=== PATIENT | female | born 1985 ===

== ENCOUNTER 2022-03-22 16:52 | Outpatient (CLI) | payer SELFPAY ==
[2022-03-22] MEDS ORDERED: LACTATED RINGERS 500 ML IV ONE (17:44)
[2022-03-22 18:42] VITALS: BP 115/72
--- NOTE | 2022-03-26 08:32 | Ultrasound Report ---
ULTRASOUND OBSTETRIC LIMITED ULTRASOUND BIOPHYSICAL PROFILE INDICATION / CLINICAL INFORMATION: OBESITY, AMA and ELEVATED B/Ps.. - Clinical Gestational Age (GA) in weeks, days: 36, 3 TECHNIQUE: Transabdominal. COMPARISON: None available. FINDINGS: BREATHING MOVEMENT = 2 GROSS BODY MOVEMENT = 2 TONE = 2 QUALITATIVE AMNIOTIC FLUID VOLUME = 2 TOTAL BIOPHYSICAL SCORE = 8/8 HEART RATE (beats per minute): 155 AMNIOTIC FLUID INDEX (cm) = 9.8 cm (normal = 7-24 cm) PRESENTATION: Cephalic. ADDITIONAL FINDINGS: Cervical length is 2.4 cm. IMPRESSION: 1. Biophysical Score = 8/8 Signer Name: Cheryl Bauer MD Signed: 03/22/2022 7:13 PM Workstation Name: [id number]
== END 2022-03-22 19:00 | disposition home or self-care (01) ==
LOC: TRG 16:52 → APU 16:53 → TRG 19:00
PROVIDERS: ATTEND Obstetrics & Gynecology Gynecology
DX: O26.893 Other specified pregnancy related conditions, third trimester (principal); L29.9 Pruritus, unspecified; Z3A.35 35 weeks gestation of pregnancy
CPT/HCPCS: 59025; 76815; 76819

== ENCOUNTER 2022-04-03 15:28 | Inpatient (IN) | payer SELFPAY ==
--- NOTE | 2022-04-03 17:28 | History and Physical Report ---
History of Present Illness Date of examination: 04/03/22 Date of admission: 04/03/2022 Chief complaint: Here for induction of labor History of present illness: 36 y/o at 38 weeks with care at [facility] presents to Labor an delivery for induction of labor for cholestasis. Past History Past Medical History: no pertinent history Past Surgical History: no surgical history Family/Genetic History: none Social history: no significant social history - Obstetrical History Expected Date of Delivery: 04/17/22 Actual Gestation: 38 Week(s) 0 Day(s) : 1 Para: 0 Number of Living Children: 0 Medications and Allergies Allergies Allergy/AdvReac Type Severity Reaction Status Date / Time No Known Allergies Allergy Verified 04/03/22 17:07 Home Medications Medication Instructions Recorded Confirmed Last Taken Type No Known Home Medications [No 04/03/22 04/03/22 Unknown History Reported Home Medications] Review of Systems All systems: negative - Vital Signs Vital signs: Vital Signs Pulse BP 94 H 127/80 04/03/22 16:07 04/03/22 16:07 Temp Pulse Resp BP Pulse Ox 97.5 F L 94 H 18 127/80 04/03/22 17:05 04/03/22 16:07 04/03/22 17:05 04/03/22 16:07 - Physical Exam Breasts: Positive: deferred Cardiovascular: Regular rate Lungs: Positive: Clear to auscultation Abdomen: Positive: soft Uterus: Positive: enlarged Anus/Rectum: Positive: normal perianal skin Deep Tendon Reflex Grade: Normal +2 - Obstetrical FHR: category 1 Uterine Contraction Monitor Mode: Palpation Cervical Dilatation: 0 Cervical Effacement Percentage: 50 station: -3 Uterine Contraction Pattern: Irregular Uterine Contraction Intensity: Mild Results All other labs normal. Assessment and Plan A:Induction of labor at 38 weeks or cholestasis P: Cytotec ripening
[2022-04-03] MEDS ORDERED: miSOPROStol 25 MCG TAB VG SCH (17:29)
[2022-04-03] MEDS ORDERED: MINERAL OIL 30 ML ORAL LIQD PO PRN (17:29)
[2022-04-03] MEDS ORDERED: TERBUTALINE 1 MG/1 ML INJ SUB-Q PRN (17:29)
[2022-04-03] MEDS ORDERED: OXYTOCIN 10 UNIT/1 ML INJ IM PRN (17:29)
[2022-04-03] MEDS ORDERED: METHYLERGONOVINE MALEATE 0.2 MG/ML VIAL IM PRN (17:29)
[2022-04-03] MEDS ORDERED: ACETAMINOPHEN 325 MG TAB PO PRN (17:29)
[2022-04-03] MEDS ORDERED: LOPERAMIDE 2 MG CAP PO PRN (17:29)
[2022-04-03] MEDS ORDERED: miSOPROStol 200 MCG TAB PR PRN (17:29)
[2022-04-03] MEDS ORDERED: ePHEDrine SULFATE 50 MG/1 ML INJ IV PRN (17:29)
[2022-04-03] MEDS ORDERED: BUTORPHANOL 2 MG/1 ML INJ IV PRN ×3 (17:29→17:54)
[2022-04-03] MEDS ORDERED: CARBOPROST TROMETHAMINE 250 MCG/1 ML INJ IM PRN (17:29)
[2022-04-03] MEDS ORDERED: LIDOCAINE (2%) 20 MG/1 ML VIAL 20 ML MDV INFILTRATI ONE (17:29)
[2022-04-03] MEDS ORDERED: LACTATED RINGERS 1,000 ML IV SCH (17:30)
[2022-04-03] MEDS ORDERED: OXYTOCIN DRIP 30 UNITS/500 ML BAG IV SCH ×2 (18:00)
[2022-04-03 18:42] LABS: Hematocrit 39.1 % (30.3-42.9); Hemoglobin 13.4 gm/dl (10.1-14.3); Mean Corpuscular HGB Conc 34 % (30-34); Mean Corpuscular Volume 88 fl (79-97); Platelet Count 138 K/mm3 (140-440); Red Blood Count 4.46 M/mm3 (3.65-5.03); Red Cell Distribution Width 15.1 % (13.2-15.2)
[2022-04-03] MEDS: miSOPROStol 25 MCG TAB PO SCH ×2 (18:55→23:12)
[2022-04-03 20:07] LABS: Alanine Aminotransferase 104 units/L (7-56); Albumin 3.1 g/dL (3.9-5); BUN/Creatinine Ratio 14; Blood Urea Nitrogen 13 mg/dL (7-17); Calcium 8.8 mg/dL (8.4-10.2); Hemolysis Index 31
--- NOTE | 2022-04-03 20:56 | Ultrasound Report ---
ULTRASOUND OBSTETRIC INDICATION / CLINICAL INFORMATION: Intrahepatic cholestasis of . Clinical Gestational Age (GA) in weeks, days: 38, 1 TECHNIQUE: Transabdominal. COMPARISON: 03/22/2022 FINDINGS: Single intrauterine . Biparietal Diameter = 8.3 cm = 33, 1 weeks, days Head Circumference = 31.4 cm = 35, 2 weeks, days Abdominal Circumference = 35.0 cm = 38, 6 weeks, days Femur Length = 7.0 cm = 36, 0 weeks, days Average Ultrasound Age (AUA) = 35, 6 weeks, days Heart Rate: 152 beats per minute. Estimated Weight in grams (if calculated): 3118 Estimated Weight Growth Percentile (if calculated): 36 Position: cephalic. Amniotic Fluid Volume: normal Amniotic Fluid Index (TAQUERIA) in cm (if calculated): 11.6. BREATHING MOVEMENT = 2 GROSS BODY MOVEMENT = 2 TONE = 2 QUALITATIVE AMNIOTIC FLUID VOLUME = 2 TOTAL BIOPHYSICAL SCORE = 8/8 IMPRESSION: 1. Single, living intrauterine with estimated sonographic age of 35, 6 weeks, days. 2. No significant sonographic abnormality. Signer Name: Nicholas Joy DO Signed: 04/03/2022 8:52 PM Workstation Name: [id number]
[2022-04-03] MEDS: URSODIOL NICU 50 MG/ML ORAL LIQD DILUTION PO SCH (21:17)
[2022-04-03] MEDS ORDERED: INSULIN GLARGINE 100 UNITS/ML SUB-Q STA (23:08)
--- NOTE | 2022-04-04 01:27 | Event Note ---
Date: 04/04/22 CHIEF COMPLAINT: HD #2, Induction of labor secondary to intrahepatic cholestasis of HISTORY OF PRESENT ILLNESS: 36-year-old primagravida at 38-1/7 weeks gestation is admitted to labor and delivery for preinduction cervical ripening secondary to intrahepatic cholestasis of . There is no leaking of fluid. Contractions are present as the patient is on oral Cytotec. There is good movement. There is spotting from placement of the intracervical Boyd balloon. The patient reports mild itching of the palms of the hands and soles of the feet. OBJECTIVE: EFM= category 1 TOCO= q 3-5 minutes SVE= ftp/80%/-3. Soft. Mid. 22 Croatian Boyd balloon was inserted transcervically and inflated with 70 mL normal saline. Thereafter, that catheter was placed to traction with 1 L bag of lactated Ringer's. LABS: Bile acids= elevated HgBA1c= 6.6 RADIOLOGY: OB Ultrasound Limited= SLIUP. Vertex. EFW= 3118 g (36th %-ile). TAQUERIA= 11.6 cm. IMPRESSION: 1.) 38 weeks 2.) Intrahepatic cholestasis of 3.) Elevated hemoglobin A1c, rule out gestational diabetes 4.) Encounter for induction of labor PLAN: 1.) care is up[facility]to-date at [facility] . 1 hour glucose tolerance test= 134. 2.) Start ursodiol 300 mg p.o. 3 times daily. 3.) Start Lantus 24 units subcu x1. 4.) Continue Cytotec 25 mcg p.o. every 4 hours. 5.) A 22 Croatian Boyd balloon was inserted transcervically. 6.) Attempt rupture of membranes after Boyd balloon falls out.
[2022-04-04] MEDS: miSOPROStol 25 MCG TAB PO SCH (03:07)
[2022-04-04] MEDS: URSODIOL NICU 50 MG/ML ORAL LIQD DILUTION PO SCH ×2 (05:26→15:06)
[2022-04-04] MEDS ORDERED: DINOPROSTONE 10 MG VAG SUPP VG NR (07:00)
[2022-04-04] MEDS ORDERED: SODIUM CHLORIDE 0.9% 1000 ML 1,000 ML IV SCH (07:15)
[2022-04-04] MEDS ORDERED: INSULIN LISPRO 100 UNIT/ML SUB-Q SCH (07:30)
[2022-04-04] MEDS ORDERED: LACTATED RINGERS 1,000 ML ONE ×2 (07:33→13:03)
--- NOTE | 2022-04-04 07:57 | Event Note ---
Date: 04/04/22 CHIEF COMPLAINT: HD #2, Induction of labor secondary to intrahepatic cholestasis of HISTORY OF PRESENT ILLNESS: 36-year-old primagravida at 38-1/7 weeks gestation is admitted to labor and delivery for preinduction cervical ripening secondary to intrahepatic cholestasis of . There is no leaking of fluid. Contractions are present. There is good movement. There is spotting. The patient reports mild itching of the palms of the hands and soles of the feet. The patient received a dose of Cytotec 25 mcg vaginally, followed by 3 doses of Cytotec 25 mcg orally. Transcervical Boyd balloon was also placed to traction, and this fell out within the past hour. However, cervix a change to only 1 cm dilated. OBJECTIVE: FBS= 138 EFM= category 1 TOCO= q 5 minutes SVE= 1/80%/-3. Soft. Mid. Another 20 Italian Boyd balloon was inserted transcervically and inflated with 70 mL normal saline. Thereafter, that catheter was placed to traction with 1 L bag of lactated Ringer's. Thereafter, Cervidil was placed in the posterior fornix. LABS: Bile acids= elevated HgBA1c= 6.6 RADIOLOGY: OB Ultrasound Limited= SLIUP. Vertex. EFW= 3118 g (36th %-ile). TAQUERIA= 11.6 cm. IMPRESSION: 1.) 38 weeks 2.) Intrahepatic cholestasis of 3.) Gestational diabetes mellitus A2 4.) Encounter for induction of labor PLAN: 1.) care is up-to-date at [facility] . 1 hour glucose tolerance test= 134. 2.) Start ursodiol 300 mg p.o. 3 times daily. 3.) Insulin regimen ordered is Humalog 8 units SQ before meals and Lantus 24 units SQ nightly. 4.) Cervidil was placed in the posterior fornix. 5.) A 20 Italian Boyd balloon was inserted transcervically and placed to traction. 6.) Attempt rupture of membranes after this Boyd balloon falls out.
[2022-04-04] MEDS ORDERED: fentaNYL 100 MCG/2 ML INJ IV NR (10:30)
[2022-04-04] MEDS ORDERED: LACTATED RINGERS 2,000 ML ONE (11:29)
--- NOTE | 2022-04-04 11:45 | Progress Note ---
Assessment and Plan A: @38.2wks IOL cholestatis of EFM cat 1 tracing infrequent contractions GDM type [address] with traction, and cervidil P: Continue IOL Urosodiol tid Lantus 24u qpm, 8u with meal AROM once balloon and cervidil comes out pain management Subjective - Subjective Date of service: 04/04/22 (0900) Principal diagnosis: Cholestasis of Patient reports: movement normal, contractions Objective - Vital Signs Vital Signs: Vital Signs - 12hr 04/03/22 04/03/22 04/03/22 23:40 23:45 23:50 Temperature Pulse Rate 86 98 H 65 Respiratory Rate Blood Pressure O2 Sat by Pulse 97 97 97 Oximetry 04/03/22 04/04/22 04/04/22 23:55 00:02 00:07 Temperature Pulse Rate 63 84 80 Respiratory Rate Blood Pressure O2 Sat by Pulse 97 98 98 Oximetry 04/04/22 04/04/22 04/04/22 00:12 00:17 00:22 Temperature Pulse Rate 73 90 64 Respiratory Rate Blood Pressure O2 Sat by Pulse 97 97 99 Oximetry 04/04/22 04/04/22 04/04/22 00:27 00:32 00:37 Temperature Pulse Rate 67 65 67 Respiratory Rate Blood Pressure O2 Sat by Pulse 99 99 97 Oximetry 04/04/22 04/04/22 04/04/22 00:42 00:47 00:52 Temperature Pulse Rate 67 81 67 Respiratory Rate Blood Pressure O2 Sat by Pulse 98 97 97 Oximetry 04/04/22 04/04/22 04/04/22 00:57 01:02 01:07 Temperature Pulse Rate 72 64 72 Respiratory Rate Blood Pressure O2 Sat by Pulse 97 97 97 Oximetry 04/04/22 04/04/22 04/04/22 01:12 01:17 01:22 Temperature Pulse Rate 56 L 64 74 Respiratory Rate Blood Pressure O2 Sat by Pulse 96 97 97 Oximetry 04/04/22 04/04/22 04/04/22 01:27 01:32 01:37 Temperature Pulse Rate 69 63 79 Respiratory Rate Blood Pressure O2 Sat by Pulse 97 98 96 Oximetry 04/04/22 04/04/22 04/04/22 01:42 01:47 01:52 Temperature Pulse Rate 75 68 90 Respiratory Rate Blood Pressure O2 Sat by Pulse 97 96 96 Oximetry 04/04/22 04/04/22 04/04/22 01:57 02:02 02:07 Temperature Pulse Rate 79 73 68 Respiratory Rate Blood Pressure O2 Sat by Pulse 95 97 97 Oximetry 04/04/22 04/04/22 04/04/22 02:12 02:24 02:29 Temperature Pulse Rate 62 89 73 Respiratory Rate Blood Pressure O2 Sat by Pulse 97 100 97 Oximetry 04/04/22 04/04/22 04/04/22 02:34 02:39 02:44 Temperature Pulse Rate 76 65 93 H Respiratory Rate Blood Pressure O2 Sat by Pulse 97 96 96 Oximetry 04/04/22 04/04/22 04/04/22 02:49 02:54 02:59 Temperature Pulse Rate 71 63 65 Respiratory Rate Blood Pressure O2 Sat by Pulse 96 96 97 Oximetry 04/04/22 04/04/22 04/04/22 03:04 03:09 03:14 Temperature Pulse Rate 94 H 82 70 Respiratory Rate Blood Pressure 112/66 O2 Sat by Pulse 97 97 95 Oximetry 04/04/22 04/04/22 04/04/22 03:19 03:24 03:29 Temperature Pulse Rate 71 68 63 Respiratory Rate Blood Pressure O2 Sat by Pulse 97 97 96 Oximetry 04/04/22 04/04/22 04/04/22 03:34 03:39 03:44 Temperature Pulse Rate 70 62 61 Respiratory Rate Blood Pressure O2 Sat by Pulse 97 97 98 Oximetry 04/04/22 04/04/22 04/04/22 03:49 03:54 03:59 Temperature Pulse Rate 70 68 109 H Respiratory Rate Blood Pressure O2 Sat by Pulse 97 97 95 Oximetry 04/04/22 04/04/22 04/04/22 04:01 04:04 04:09 Temperature Pulse Rate 71 89 109 H Respiratory Rate Blood Pressure O2 Sat by Pulse 94 94 96 Oximetry 04/04/22 04/04/22 04/04/22 04:14 04:19 04:24 Temperature Pulse Rate 79 66 79 Respiratory Rate Blood Pressure O2 Sat by Pulse 96 96 95 Oximetry 04/04/22 04/04/22 04/04/22 04:29 04:34 04:39 Temperature Pulse Rate 103 H 89 62 Respiratory Rate Blood Pressure O2 Sat by Pulse 95 95 98 Oximetry 09/15/22 09/15/22 09/15/22 04:44 04:49 04:54 Temperature Pulse Rate 76 77 92 H Respiratory Rate Blood Pressure O2 Sat by Pulse 96 96 96 Oximetry 04/04/22 04/04/22 04/04/22 04:59 05:04 05:09 Temperature Pulse Rate 66 68 65 Respiratory Rate Blood Pressure O2 Sat by Pulse 96 96 96 Oximetry 04/04/22 04/04/22 04/04/22 05:14 05:19 05:24 Temperature Pulse Rate 71 71 90 Respiratory Rate Blood Pressure O2 Sat by Pulse 98 96 96 Oximetry 04/04/22 04/04/22 04/04/22 05:29 05:32 05:34 Temperature Pulse Rate 73 72 65 Respiratory Rate Blood Pressure O2 Sat by Pulse 96 93 96 Oximetry 04/04/22 04/04/22 04/04/22 05:39 05:44 05:45 Temperature Pulse Rate 72 83 78 Respiratory Rate Blood Pressure O2 Sat by Pulse 97 94 94 Oximetry 04/04/22 04/04/22 04/04/22 05:49 05:50 05:54 Temperature Pulse Rate 72 69 82 Respiratory Rate Blood Pressure O2 Sat by Pulse 95 94 96 Oximetry 04/04/22 04/04/22 04/04/22 05:55 05:59 06:04 Temperature Pulse Rate 79 94 H 69 Respiratory Rate Blood Pressure O2 Sat by Pulse 94 96 98 Oximetry 04/04/22 04/04/22 04/04/22 06:05 06:09 06:13 Temperature Pulse Rate 64 110 H 90 Respiratory Rate Blood Pressure O2 Sat by Pulse 94 97 94 Oximetry 04/04/22 04/04/22 04/04/22 06:14 06:19 06:24 Temperature Pulse Rate 76 74 61 Respiratory Rate Blood Pressure O2 Sat by Pulse 95 95 96 Oximetry 04/04/22 04/04/22 04/04/22 06:29 06:34 06:39 Temperature Pulse Rate 69 71 70 Respiratory Rate Blood Pressure O2 Sat by Pulse 96 97 96 Oximetry 04/04/22 04/04/22 04/04/22 06:44 06:49 06:54 Temperature Pulse Rate 73 70 85 Respiratory Rate Blood Pressure O2 Sat by Pulse 96 96 99 Oximetry 04/04/22 04/04/22 04/04/22 06:59 07:04 07:07 Temperature Pulse Rate 70 69 72 Respiratory Rate Blood Pressure O2 Sat by Pulse 96 96 94 Oximetry 04/04/22 04/04/22 04/04/22 07:09 07:17 07:22 Temperature Pulse Rate 72 85 81 Respiratory Rate Blood Pressure O2 Sat by Pulse 96 97 96 Oximetry 04/04/22 04/04/22 04/04/22 07:27 07:32 07:37 Temperature Pulse Rate 68 75 64 Respiratory Rate Blood Pressure O2 Sat by Pulse 97 96 96 Oximetry 04/04/22 04/04/22 04/04/22 07:42 07:47 07:52 Temperature Pulse Rate 73 84 65 Respiratory Rate Blood Pressure O2 Sat by Pulse 96 96 96 Oximetry 04/04/22 04/04/22 04/04/22 07:57 08:02 08:07 Temperature Pulse Rate 68 71 77 Respiratory Rate Blood Pressure O2 Sat by Pulse 96 96 96 Oximetry 04/04/22 04/04/22 04/04/22 08:12 08:17 08:22 Temperature Pulse Rate 65 70 61 Respiratory Rate Blood Pressure O2 Sat by Pulse 96 96 96 Oximetry 04/04/22 04/04/22 04/04/22 08:27 08:32 08:37 Temperature Pulse Rate 79 72 75 Respiratory Rate Blood Pressure O2 Sat by Pulse 96 96 98 Oximetry 04/04/22 04/04/22 04/04/22 08:42 08:47 08:52 Temperature Pulse Rate 66 64 64 Respiratory Rate Blood Pressure O2 Sat by Pulse 96 96 98 Oximetry 04/04/22 04/04/22 04/04/22 08:57 09:02 09:07 Temperature Pulse Rate 66 60 64 Respiratory Rate Blood Pressure O2 Sat by Pulse 97 97 97 Oximetry 04/04/22 04/04/22 04/04/22 09:12 09:17 09:22 Temperature Pulse Rate 64 71 67 Respiratory Rate Blood Pressure O2 Sat by Pulse 96 98 97 Oximetry 04/04/22 04/04/22 04/04/22 09:27 09:32 09:37 Temperature Pulse Rate 64 69 64 Respiratory Rate Blood Pressure O2 Sat by Pulse 99 98 97 Oximetry 04/04/22 04/04/22 04/04/22 09:42 09:47 09:50 Temperature Pulse Rate 63 65 63 Respiratory Rate Blood Pressure 137/77 O2 Sat by Pulse 97 97 Oximetry 04/04/22 04/04/22 04/04/22 09:52 09:57 10:02 Temperature Pulse Rate 62 67 62 Respiratory Rate Blood Pressure O2 Sat by Pulse 98 98 97 Oximetry 04/04/22 04/04/22 04/04/22 10:07 10:16 10:37 Temperature 98.1 F Pulse Rate 71 72 Respiratory 18 Rate Blood Pressure O2 Sat by Pulse 97 96 Oximetry 04/04/22 04/04/22 04/04/22 10:42 10:47 10:52 Temperature Pulse Rate 74 72 74 Respiratory Rate Blood Pressure O2 Sat by Pulse 96 96 96 Oximetry 04/04/22 04/04/22 04/04/22 10:57 11:14 11:19 Temperature Pulse Rate 79 64 74 Respiratory Rate Blood Pressure O2 Sat by Pulse 96 98 97 Oximetry 04/04/22 04/04/22 04/04/22 11:21 11:24 11:27 Temperature Pulse Rate 71 70 111 H Respiratory Rate Blood Pressure O2 Sat by Pulse 94 95 94 Oximetry 04/04/22 04/04/22 11:29 11:34 Temperature Pulse Rate 65 85 Respiratory Rate Blood Pressure O2 Sat by Pulse 97 96 Oximetry - Exam Breasts: deferred Cardiovascular: Regular rate Lungs: Clear to auscultation, Normal air movement Abdomen: Present: normal appearance Uterus: Present: fundal height above umbilicus FHR: category 1 Uterine Contraction Monitor Mode: External Uterine Contraction Pattern: Irregular Extremities: normal Deep Tendon Reflex Grade: Normal +2 - Labs Labs: Abnormal Labs 04/03/22 04/03/22 04/03/22 18:10 18:10 18:10 Plt Count 138 L Sodium 135 L Carbon Dioxide 15 L Hemoglobin A1c 6.6 H AST 58 H ALT 104 H Alkaline Phosphatase 395 H Albumin 3.1 L Laboratory Results - last 24 hr 04/03/22 04/03/22 04/03/22 18:10 18:10 18:10 WBC 5.6 RBC 4.46 Hgb 13.4 Hct 39.1 MCV 88 MCH 30 MCHC 34 RDW 15.1 Plt Count 138 L Sodium 135 L Potassium 4.1 Chloride 99.7 Carbon Dioxide 15 L Anion Gap 24 BUN 13 Creatinine 0.9 Estimated GFR > 60 BUN/Creatinine Ratio 14 Glucose 78 Hemoglobin A1c Calcium 8.8 Total Bilirubin 0.40 AST 58 H ALT 104 H Alkaline Phosphatase 395 H Total Protein 7.2 Albumin 3.1 L Albumin/Globulin Ratio 0.8 SARS-CoV-2 (PCR) Blood Type O POSITIVE Antibody Screen Negative 04/03/22 04/04/22 18:10 09:49 WBC RBC Hgb Hct MCV MCH MCHC RDW Plt Count Sodium Potassium Chloride Carbon Dioxide Anion Gap BUN Creatinine Estimated GFR BUN/Creatinine Ratio Glucose Hemoglobin A1c 6.6 H Calcium Total Bilirubin AST ALT Alkaline Phosphatase Total Protein Albumin Albumin/Globulin Ratio SARS-CoV-2 (PCR) Negative Blood Type Antibody Screen
[2022-04-04] MEDS ORDERED: fentaNYL-BUPIV 2 MCG/ML-0.125% 200 MCG/100 ML BAG EPIDURAL ONE (12:02)
[2022-04-04] MEDS ORDERED: fentaNYL-BUPIV 2 MCG/ML-0.125% 200 MCG/100 ML BAG EPIDURAL SCH (12:04)
[2022-04-04] MEDS ORDERED: NALOXONE 0.4 MG/1 ML INJ IV PRN (12:04)
[2022-04-04] MEDS ORDERED: ePHEDrine SULFATE 50 MG/1 ML INJ IV PRN (12:04)
--- NOTE | 2022-04-04 12:28 | Anesthesia Consultation ---
Anesthesia Consult and Med Hx Date of service: 04/04/22 - Airway Anesthetic Teeth Evaluation: Good ROM Head & Neck: Adequate Mental/Hyoid Distance: Adequate Mallampati Class: Class II Intubation Access Assessment: Probably Good - Pulmonary Exam CTA: Yes - Cardiac Exam Cardiac Exam: RRR - Pre-Operative Health Status ASA Pre-Surgery Classification: ASA2 Proposed Anesthetic Plan: Epidural - Pulmonary Hx Smoking: No Hx Asthma: No Hx Respiratory Symptoms: No SOB: No COPD: No Home Oxygen Therapy: No Hx Pneumonia: No Hx Sleep Apnea: No - Cardiovascular System Hx Hypertension: No Hx Coronary Artery Disease: No Hx Heart Attack/AMI: No Hx Angina: No Hx Percutaneous Transluminal Coronary Angioplasty (PTCA): No Hx Cardia Arrhythmia: No Hx Pacemaker: No Hx Internal Defibrillator: No Hx Valvular Heart Disease: No Hx Heart Murmur: No Hx Peripheral Vascular Disease: No - Central Nervous System Hx Neuromuscular Disorder: No Hx Seizures: No CVA: No Hx Back Pain: No Hx Psychiatric Problems: No - Gastrointestinal Hx Ulcer: No Hx Gastroesophageal Reflux Disease: No - Endocrine Hx Renal Disease: No Hx End Stage Renal Disease: No Hx Cirrhosis: No Hx Liver Disease: No Hx Insulin Dependent Diabetes: No Hx Non-Insulin Dependent Diabetes: Yes Hx Thyroid Disease: No Hx Hypothyroidism: No Hx Hyperthyroidism: No - Hematic Hx Anemia: No Hx Sickle Cell Disease: No - Other Systems Hx Alcohol Use: No Hx Substance Use: No Hx Cancer: No Hx Obesity: No
--- NOTE | 2022-04-04 12:28 | Anesthesia Day of Surgery ---
Anesthesia Day of Surgery - Day of Surgery Patient Examined: Yes Patient H&P Reviewed: Yes Patient is NPO: Yes Beta Blockers: No Cardiac Clearance: No Pulmonary Clearance: No Jonel's Test: N/A
--- NOTE | 2022-04-04 12:29 | Progress Note ---
Labor Epidural - Labor Epidural Start Time: 12:10 Stop Time: 12:15 Performed by:: DAT HAMMOND Procedure: Epidural Requested for Labor Pain. H&P and PT Chart reviewed and consent obtained. Time out performed and the procedure was explained, all questions answered. Patient was placed in a sitting position with monitors applied. The PTs back was prepped and draped in usual sterile fashion. The Skin was localized with 3 mL of 1% lidocaine at L3-L4. A 17-gauge Touhy epidural needle was advanced to TORRES with saline at 7 cm and no blood/CSF was noted via epidural needle. Epidural catheter was advanced to 12 cm. There was negative aspiration for blood and CSF in the catheter and negative response to a test dose of 3 ml 1.5% lidocaine w/ Epi and a sterile dressing was applied Patient tolerated the procedure well and there were no immediate complications noted.
--- NOTE | 2022-04-04 12:43 | Event Note ---
Date: 04/04/22 (0647) Patient pain is tolerable with epidural at this time. Attempted to AROM, patient very resistant, crying due to fear. Spouse at bs consoling and explaining procedure to patient in [place]. She declines this process at this time. We will start Pitocin 4x4x30. Ve:-3
[2022-04-04] MEDS ORDERED: OXYTOCIN DRIP 30 UNITS/500 ML BAG IV SCH ×2 (14:00→19:01)
--- NOTE | 2022-04-04 16:02 | Ultrasound Report ---
LIMITED OBSTETRICAL ULTRASOUND HISTORY: Abdominal pain/right flank pain. COMPARISON: Previous day. FINDINGS: A single viable intrauterine in the cephalic position has heart tones of 13 0 bpm. The placenta is located on the right laterally at the fundus. No placental separation is identified. Incidentally noted is moderate right-sided hydronephrosis. IMPRESSION: 1. Viable intrauterine without visualized placental abnormality. 2. Right-sided hydronephrosis likely representing hydronephrosis of . Signer Name: Redd Rangel MD Signed: 04/04/2022 3:58 PM Workstation Name: [email or web address]
--- NOTE | 2022-04-04 16:16 | Progress Note ---
Labor Epidural - Labor Epidural Start Time: 15:52 Stop Time: 16:00 Performed by:: DAT HAMMOND Procedure: Pt stated that she was getting no relief from 1st epidural and requested a second. Patient was placed in a sitting position with monitors applied. The PTs back was prepped and draped in usual sterile fashion. The Skin was localized with 3 mL of 1% lidocaine at L3-L4. A 17-gauge Touhy epidural needle was advanced to TORRES with saline at 7 cm and no blood/CSF was noted via epidural needle. Epidural catheter was advanced to 12 cm. There was negative aspiration for blood and CSF in the catheter and negative response to a test dose of 3 ml 1.5% lidocaine w/ Epi and a sterile dressing was applied Patient tolerated the procedure well and there were no immediate complications noted.
--- NOTE | 2022-04-04 19:26 | Event Note ---
Date: 04/04/22 (1914) Evaluating patient, cat 1 tracing, cx 1-3min, she received a second epidural, now she is w/o pain. VE: C/+1. She does not push effectively, will decrease epidural pump and position high fowlers with legs lowered.
[2022-04-04] MEDS ORDERED: MINERAL OIL 30 ML ORAL LIQD ONE (20:03)
[2022-04-04] MEDS ORDERED: INSULIN GLARGINE 100 UNITS/ML SUB-Q SCH (22:00)
[2022-04-05] MEDS ORDERED: LANOLIN/ZINC/DIMETHICONE (LANSINOH) 7 GM TP PRN (00:15)
[2022-04-05] MEDS ORDERED: HYDROcodone/ACETAMINOPHEN 5-325 MG TAB PO PRN (00:15)
[2022-04-05] MEDS ORDERED: BENZOCAINE/MENTHOL 20/0.5% TOP SPRAY 56 GM TP PRN (00:15)
[2022-04-05] MEDS ORDERED: MAGNESIUM HYDROXIDE (MOM) ORAL LIQD UDC PO PRN (00:15)
--- NOTE | 2022-04-05 00:16 | Procedure Note ---
OB Delivery Note - Delivery Date of Delivery: 04/04/22 (2225) Surgeon: ANDREI OLIVAREZ Outside Sales Executive: ARLENE FRANCES (Did repair) Estimated blood loss: 500cc - Vaginal Delivery presentation: vertex Delivery position: OA Intrapartum events: none Delivery induction: misoprostol (cervidil, and balloon) Delivery augmentation: pitocin Delivery monitor: external FHT, external uterine Route of delivery: Delivery placenta: spontaneous Delivery cord: 3 umbilical vessels Episiotomy: none Delivery laceration: 3rd degree (vaginal), other (bilateral sulcus) Delivery repair: vicryl (2.0, 3.0), other (monocryl 4.0) Anesthesia: epidural Delivery comments: at 38.2 weeks gestation being induced for cholestasis of . she was induced with a christiansen bulb, cytotec, cervidil, she SROM clear, and was augmented with pitocin. she received an epidural, became complete and delivered a viable baby girl @2225 on 04/04/22, 6/8, 7.4 pounds. Infant placed on maternal abdomen, infant was stunned, no cord delayed clamping then, cut and clamped by CNM. Placenta sent for pathology. QBL 500ml. 3rd degree vaginal laceration, and bilateral sulcus which was repaired by Dr. Frances using 2.0,3.0 vycril and 4.0 monicryl. - Infant B at 1 minute: 6 at 5 minutes: 8 Gender: Female
[2022-04-05] MEDS ORDERED: MINERAL OIL 30 ML ORAL LIQD PO ONE (02:54)
[2022-04-05] MEDS: IBUPROFEN 800 MG TAB PO SCH ×4 (06:41→23:34)
[2022-04-05] MEDS: WITCH HAZEL/ GLYCERIN PAD TP PRN (07:05)
[2022-04-05 08:08] LABS: Hematocrit 32.4 % (30.3-42.9); Hemoglobin 10.8 gm/dl (10.1-14.3); Mean Corpuscular HGB Conc 33 % (30-34); Mean Corpuscular Volume 89 fl (79-97); Platelet Count 113 K/mm3 (140-440); Red Blood Count 3.65 M/mm3 (3.65-5.03); Red Cell Distribution Width 15.5 % (13.2-15.2)
--- NOTE | 2022-04-05 08:37 | Progress Note ---
Assessment and Plan A: S/P with 3rd degree vag tear Diabetic Leukocytosis IOL for cholestasis P: Continue routine pp orders Accuchecks AC, 2HR PP AND HS UA C&S Cefoxitin 1 gm IV X 1 Repeat CBC tomm D/C home within 24 hrs if stable - Patient Problems (1) (normal spontaneous vaginal delivery) Current Visit: Yes Status: Acute Subjective - Subjective Date of service: 04/05/22 Principal diagnosis: Cholestasis of Patient reports: appetite normal, voiding normally, pain well controlled, ambulating normally [place]: doing well, nursing well Objective - Vital Signs Latest vital signs: Vital Signs Temp Pulse Resp BP Pulse Ox Pulse Ox 04/05/22 08:09 98.1 F 66 18 122/53 99 04/05/22 07:45 99 04/05/22 06:41 18 04/05/22 05:56 98.6 F 75 18 119/62 99 04/05/22 02:22 97.4 F L 87 18 125/70 97 100 04/05/22 01:40 68 99 04/05/22 01:35 88 98 04/05/22 01:33 65 116/65 04/05/22 01:30 69 99 04/05/22 01:25 71 99 04/05/22 01:20 71 99 04/05/22 01:18 68 115/63 04/05/22 01:15 76 99 04/05/22 01:10 67 99 04/05/22 01:05 71 98 04/05/22 01:03 72 109/56 04/05/22 01:00 91 H 98 04/05/22 00:55 88 98 04/05/22 00:50 76 99 04/05/22 00:48 70 117/69 04/05/22 00:45 73 99 04/05/22 00:40 75 99 04/05/22 00:35 70 99 04/05/22 00:33 64 121/64 04/05/22 00:30 83 99 04/05/22 00:25 78 99 04/05/22 00:20 75 98 04/05/22 00:18 70 113/57 04/05/22 00:15 72 100 04/05/22 00:10 80 99 04/05/22 00:05 68 99 04/05/22 00:03 69 113/65 04/05/22 00:00 70 99 04/04/22 23:55 67 99 04/04/22 23:50 68 100 04/04/22 23:48 71 114/54 04/04/22 23:45 69 100 04/04/22 23:40 78 100 04/04/22 23:35 77 99 04/04/22 23:33 67 121/58 04/04/22 23:30 69 99 04/04/22 23:25 72 99 04/04/22 23:20 72 99 04/04/22 23:18 71 132/63 04/04/22 23:15 76 99 04/04/22 23:10 84 99 04/04/22 23:05 79 99 04/04/22 23:03 73 131/56 04/04/22 23:00 79 99 04/04/22 22:55 81 99 04/04/22 22:50 87 99 04/04/22 22:48 75 140/67 04/04/22 22:45 76 98 04/04/22 22:44 95 H 134/62 04/04/22 22:40 84 99 04/04/22 22:35 79 98 04/04/22 22:33 76 128/58 04/04/22 22:31 78 136/58 04/04/22 22:30 78 99 04/04/22 22:25 80 98 04/04/22 22:20 115 H 98 04/04/22 22:15 136 H 97 04/04/22 22:10 103 H 97 04/04/22 22:04 119 H 97 04/04/22 22:03 71 86 04/04/22 21:59 101 H 96 04/04/22 21:55 82 92 04/04/22 21:54 82 97 04/04/22 21:49 99 H 79 L 04/04/22 21:48 132 H 80 L 04/04/22 21:44 103 H 97 04/04/22 21:39 105 H 98 04/04/22 21:37 77 92 04/04/22 21:34 87 97 04/04/22 21:29 102 H 98 04/04/22 21:24 109 H 98 04/04/22 21:19 86 95 04/04/22 21:14 88 97 04/04/22 21:09 89 96 04/04/22 21:04 80 98 04/04/22 20:59 102 H 98 04/04/22 20:54 87 97 04/04/22 20:49 95 H 97 04/04/22 20:44 83 97 04/04/22 20:39 98 H 97 04/04/22 20:34 99 H 98 04/04/22 20:29 108 H 96 04/04/22 20:24 74 98 04/04/22 20:19 74 97 04/04/22 20:14 105 H 98 04/04/22 20:09 119 H 97 04/04/22 20:05 77 67 L 04/04/22 20:04 86 95 04/04/22 19:59 84 98 04/04/22 19:57 89 87 04/04/22 19:54 75 67 L 04/04/22 19:51 83 89 04/04/22 19:49 111 H 97 04/04/22 19:44 60 98 04/04/22 19:39 57 L 99 04/04/22 19:34 91 H 97 04/04/22 19:29 70 97 04/04/22 19:24 98 H 97 04/04/22 19:23 99.8 F H 18 98 04/04/22 19:19 84 97 04/04/22 19:14 89 98 04/04/22 19:09 79 97 04/04/22 19:04 58 L 97 04/04/22 19:03 54 L 119/67 04/04/22 18:59 57 L 96 04/04/22 18:54 55 L 97 04/04/22 18:49 56 L 96 04/04/22 18:48 63 123/70 04/04/22 18:44 55 L 96 04/04/22 18:39 57 L 96 04/04/22 18:34 53 L 96 04/04/22 18:33 57 L 124/65 04/04/22 18:29 60 97 04/04/22 18:24 58 L 96 04/04/22 18:19 63 97 04/04/22 18:18 57 L 108/64 04/04/22 18:14 65 95 04/04/22 18:09 68 97 04/04/22 18:05 54 L 133/61 04/04/22 18:04 59 L 97 04/04/22 17:59 55 L 97 04/04/22 17:54 60 97 04/04/22 17:49 60 97 04/04/22 17:48 90 127/77 04/04/22 17:44 72 95 04/04/22 17:39 67 95 04/04/22 17:34 59 L 96 04/04/22 17:33 71 119/65 04/04/22 17:30 99.2 F 16 04/04/22 17:29 59 L 96 04/04/22 17:24 65 95 04/04/22 17:19 64 96 04/04/22 17:18 61 119/63 04/04/22 17:14 74 96 04/04/22 17:09 56 L 96 04/04/22 17:04 60 115/64 97 04/04/22 16:59 72 96 04/04/22 16:54 63 95 04/04/22 16:53 78 94 04/04/22 16:49 73 95 04/04/22 16:48 56 L 128/71 04/04/22 16:44 56 L 95 04/04/22 16:39 65 95 04/04/22 16:34 61 94 04/04/22 16:33 62 123/66 04/04/22 16:29 61 95 04/04/22 16:28 67 94 04/04/22 16:24 69 96 04/04/22 16:19 65 96 04/04/22 16:14 66 97 04/04/22 16:10 66 127/64 04/04/22 16:09 66 96 04/04/22 16:04 79 97 04/04/22 16:03 69 139/77 04/04/22 16:00 73 143/78 04/04/22 15:59 61 98 04/04/22 15:54 68 97 04/04/22 15:49 59 L 98 04/04/22 15:48 66 141/76 04/04/22 15:44 65 99 04/04/22 15:39 66 98 04/04/22 15:34 67 98 04/04/22 15:33 63 142/74 04/04/22 15:29 61 100 04/04/22 15:24 61 99 04/04/22 15:19 63 99 04/04/22 15:14 69 99 04/04/22 15:09 66 99 04/04/22 15:04 65 98 04/04/22 14:59 68 96 04/04/22 14:54 68 177/88 98 04/04/22 14:49 63 98 04/04/22 14:44 68 98 04/04/22 14:39 73 96 04/04/22 14:35 98.1 F 16 04/04/22 14:34 66 97 04/04/22 14:29 65 97 04/04/22 14:24 58 L 98 04/04/22 14:19 66 98 04/04/22 14:14 63 98 04/04/22 14:09 65 98 04/04/22 14:04 67 95 04/04/22 13:59 57 L 97 04/04/22 13:54 68 96 04/04/22 13:49 70 97 04/04/22 13:44 72 97 04/04/22 13:39 58 L 96 04/04/22 13:34 60 98 04/04/22 13:33 61 134/71 04/04/22 13:29 61 97 04/04/22 13:24 61 97 04/04/22 13:22 72 94 04/04/22 13:19 60 96 04/04/22 13:18 64 126/62 04/04/22 13:14 64 95 04/04/22 13:09 67 97 04/04/22 13:04 67 97 04/04/22 13:03 61 97/54 04/04/22 13:00 98 04/04/22 12:59 66 97 04/04/22 12:54 64 97 04/04/22 12:49 68 97 04/04/22 12:48 62 124/62 04/04/22 12:44 59 L 97 04/04/22 12:39 78 98 04/04/22 12:34 78 138/89 98 04/04/22 12:29 72 96 04/04/22 12:27 67 137/58 04/04/22 12:24 68 96 04/04/22 12:21 71 126/58 04/04/22 12:19 92 H 99 04/04/22 12:17 81 140/69 04/04/22 12:16 81 184/77 09/15/22 12:14 67 142/56 98 09/15/22 12:10 96 H 150/76 04/04/22 12:09 84 96 04/04/22 12:04 70 93 04/04/22 12:01 71 93 04/04/22 11:59 70 96 04/04/22 11:54 83 94 04/04/22 11:52 71 94 04/04/22 11:49 78 96 04/04/22 11:47 70 147/82 04/04/22 11:44 97 H 96 04/04/22 11:39 77 97 04/04/22 11:34 85 96 04/04/22 11:29 65 97 04/04/22 11:27 111 H 94 04/04/22 11:24 70 95 04/04/22 11:21 71 94 04/04/22 11:19 74 97 04/04/22 11:14 64 98 04/04/22 10:57 79 96 04/04/22 10:52 74 96 04/04/22 10:47 72 96 04/04/22 10:42 74 96 04/04/22 10:37 72 96 04/04/22 10:16 98.1 F 18 04/04/22 10:07 71 97 04/04/22 10:02 62 97 04/04/22 09:57 67 98 04/04/22 09:52 62 98 04/04/22 09:50 63 137/77 04/04/22 09:47 65 97 04/04/22 09:42 63 97 04/04/22 09:37 64 97 04/04/22 09:32 69 98 04/04/22 09:27 64 99 04/04/22 09:22 67 97 04/04/22 09:17 71 98 04/04/22 09:12 64 96 04/04/22 09:07 64 97 04/04/22 09:02 60 97 04/04/22 08:57 66 97 04/04/22 08:52 64 98 04/04/22 08:47 64 96 04/04/22 08:42 66 96 04/04/22 08:37 75 98 Intake and Output 04/04/22 04/05/22 04/05/22 22:59 06:59 14:59 Intake Total 480 Output Total 300 400 Balance -300 80 Intake: Intake, Free Water 480 Output: Urine 300 400 Indwelling Catheter 300 Void 400 Other: Total, Output Amount 300 400 # Voids Void 1 Estimated Blood Loss 500 - Exam Breasts: Present: normal Abdomen: Present: normal appearance, soft, normal bowel sounds Vulva: both: normal Uterus: Present: normal, firm, fundal height below umbilicus Extremities: Present: normal Incision: Present: normal, intact - Labs Labs: Abnormal lab results 04/04/22 04/05/22 Range/Units 06:23 07:45 WBC 22.6 H (4.5-11.0) K/mm3 RDW 15.5 H (13.2-15.2) % Plt Count 113 L (140-440) K/mm3 POC Glucose 128 H (70-105) mg/dL
[2022-04-05] MEDS ORDERED: ceFAZolin/NS 1 GM/50 ML 1 GM/50 ML BAG IV SCH (10:00)
[2022-04-05] MEDS ORDERED: metroNIDAZOLE/NS 500 MG/100 ML 500 MG/100 ML BAG IV ONE (10:00)
[2022-04-05] MEDS: DOCUSATE SODIUM 100 MG CAP PO SCH ×2 (10:38→21:52)
[2022-04-05] MEDS: ACETAMINOPHEN 325 MG TAB PO PRN ×2 (10:42→16:56)
[2022-04-05 11:06] LABS: Bacteria,Urine 2+ /HPF (Negative); Mucus,Urine FEW /HPF
[2022-04-05 11:08] LABS: RBC,Urine > 182.0 /HPF (0.0-6.0)
[2022-04-05 11:09] LABS: WBC,Urine > 182.0 /HPF (0.0-6.0)
[2022-04-05 11:59] LABS: Color,Urine Brown (Yellow)
--- NOTE | 2022-04-05 17:46 | Post Anesthesia Evaluation ---
- Post Anesthesia Evaluation Patient Participated: Yes Airway Patent: Yes Stable Respiratory Function: Yes Nausea/Vomiting: No Temp > 96.8F: Yes Pain Manageable: Yes Adequeate Hydration: Yes Anesthesia Complications: No Block Receding Appropriately: Yes Patient on Ventilator: No
[2022-04-06] MEDS: IBUPROFEN 800 MG TAB PO SCH ×3 (05:57→17:17)
[2022-04-06] MEDS: DOCUSATE SODIUM 100 MG CAP PO SCH ×2 (10:00→22:44)
[2022-04-06 10:20] LABS: Basophils % (Auto) 0.1 % (0.0-1.8); Eosinophils # (Auto) 0.1 K/mm3 (0.0-0.4); Eosinophils % (Auto) 0.6 % (0.0-4.3); Hematocrit 32.6 % (30.3-42.9); Hemoglobin 10.9 gm/dl (10.1-14.3); Lymphocytes # (Auto) 1.2 K/mm3 (1.2-5.4); Lymphocytes % (Auto) 7.7 % (13.4-35.0); Mean Corpuscular HGB Conc 33 % (30-34); Mean Corpuscular Volume 89 fl (79-97); Monocytes # (Auto) 0.5 K/mm3 (0.0-0.8); Monocytes % (Auto) 3.5 % (0.0-7.3); Platelet Count 119 K/mm3 (140-440); Red Blood Count 3.69 M/mm3 (3.65-5.03); Red Cell Distribution Width 15.4 % (13.2-15.2)
--- NOTE | 2022-04-06 10:25 | Progress Note ---
Assessment and Plan O: PLTS 113 and WBC 22 yesterday, will repeat today A: PPD # 2 - Thrombocytopenia P: Repeat CBC Large WBC in urine - Rocephin 1 gm IM x one dose Plan discharge home today Subjective - Subjective Date of service: 04/06/22 Principal diagnosis: PPD # 2 Interval history: Feeling OK Patient reports: appetite normal [place]: doing well Objective - Vital Signs Latest vital signs: Vital Signs Temp Pulse Resp BP BP Pulse Ox Pulse Ox 04/06/22 08:15 98 04/06/22 07:53 97.7 F 75 20 112/64 97 04/06/22 05:56 98 04/06/22 03:50 98 04/06/22 01:30 98 04/06/22 00:00 98.6 F 72 20 100/56 100 04/05/22 23:34 98 04/05/22 21:51 98 04/05/22 20:10 98 04/05/22 15:52 98.0 F 83 18 111/65 95 04/05/22 11:53 98.7 F 84 18 110/54 98 Intake and Output 04/05/22 04/06/22 04/06/22 22:59 06:59 14:59 Intake Total 240 Balance 240 Intake: Oral 240 Other: Total, Intake Amount 240 # Voids Void 1 1 1 - Exam Breasts: Present: deferred, mass Lungs: Present: Clear to auscultation Abdomen: Present: soft Vulva: both: normal Uterus: Present: fundal height below umbilicus Deep Tendon Reflex Grade: Normal +2 - Labs Labs: Abnormal lab results 04/05/22 04/05/22 04/06/22 Range/Units 10:35 16:51 09:26 WBC 15.4 H (4.5-11.0) K/mm3 RDW 15.4 H (13.2-15.2) % Plt Count 119 L (140-440) K/mm3 Lymph % (Auto) 7.7 L (13.4-35.0) % Seg Neutrophils % 88.1 H (40.0-70.0) % Seg Neutrophils # 13.5 H (1.8-7.7) K/mm3 POC Glucose 116 H (70-105) mg/dL Urine WBC (Auto) > 182.0 H (0.0-6.0) /HPF
[2022-04-06] MEDS ORDERED: LIDOCAINE-MPF (1%) 10 MG/1 ML VIAL 5 ML INFILTRATI ONE (11:26)
[2022-04-06] MEDS ORDERED: LIDOCAINE-MPF (1%) 10 MG/1 ML VIAL 5 ML ONE (11:37)
[2022-04-06] MEDS ORDERED: LIDOCAINE (1%) 10 MG/1 ML VIAL 20 ML MDV IM ONE (12:00)
[2022-04-06] MEDS: WITCH HAZEL/ GLYCERIN PAD TP PRN (17:16)
[2022-04-06 18:19] LABS: Basophils % (Auto) 0.2 % (0.0-1.8); Eosinophils # (Auto) 0.1 K/mm3 (0.0-0.4); Eosinophils % (Auto) 0.8 % (0.0-4.3); Hematocrit 29.9 % (30.3-42.9); Lymphocytes # (Auto) 0.9 K/mm3 (1.2-5.4); Lymphocytes % (Auto) 6.7 % (13.4-35.0); Mean Corpuscular HGB Conc 34 % (30-34); Mean Corpuscular Volume 88 fl (79-97); Monocytes # (Auto) 0.4 K/mm3 (0.0-0.8); Monocytes % (Auto) 3.3 % (0.0-7.3); Platelet Count 134 K/mm3 (140-440); Red Blood Count 3.39 M/mm3 (3.65-5.03); Red Cell Distribution Width 15.7 % (13.2-15.2)
[2022-04-07] MEDS: IBUPROFEN 800 MG TAB PO SCH ×2 (00:25→05:52)
--- NOTE | 2022-04-07 01:01 | Discharge Summary ---
Providers - Providers Date of Admission: 04/03/22 17:29 Date of discharge: 04/07/22 Attending physician: ARLENE DUMONT MD Primary care physician: ARLENE DUMONT MD Hospitalization Reason for admission: active labor Delivery: Laceration: 3rd degree complications: UTI Discharge diagnosis: IUP at term delivered [place] baby: female Hospital course: Had elevated WBC's and low platelets which have improved Condition at discharge: Good Disposition: 01 HOME / SELF CARE / HOMELESS Plan - Provider Discharge Summary Activity: routine, no sex for 6 weeks, no strenuous exercise Diet: routine Instructions: routine Additional instructions: [] Smoking cessation referral if applicable(refer to patient education folder for contact #) [] Refer to [facility] Booklet Call your doctor immediately for: * Fever > 100.5 * Heavy vaginal bleeding ( >1 pad per hour) * Severe persistent headache * Shortness of breath * Reddened, hot, painful area to leg or breast * Drainage or odor from incision. * Keep incision clean and dry at all times and follow doctor's instructions regarding bathing/showering - Follow up plan Follow up: ARLENE DUMONT MD [Primary Care Provider] - 6 Weeks
[2022-04-07 10:01] VITALS: BP 109/71
== END 2022-04-07 13:20 | disposition home or self-care (01) | DRG 768 ==
LOC: TRG 15:28 → LD 15:30 → TRG 17:29 → OB 04-05 02:44
PROVIDERS: ADMIT Obstetrics & Gynecology Gynecology; ATTEND Obstetrics & Gynecology Gynecology
PROC: 10E0XZZ Delivery of Products of Conception, External Approach (ICD-10-PCS; principal; 2022-04-04)
PROC: 3E0R3BZ Introduction of Anesthetic Agent into Spinal Canal, Percutaneous Approach (ICD-10-PCS; 2022-04-04)
PROC: 0DQR0ZZ Repair Anal Sphincter, Open Approach (ICD-10-PCS; 2022-04-04)
PROC: 00HU33Z Insertion of Infusion Device into Spinal Canal, Percutaneous Approach (ICD-10-PCS; 2022-04-04)
PROC: 3E0P7VZ Introduction of Hormone into Female Reproductive, Via Natural or Artificial Opening (ICD-10-PCS; 2022-04-04)
DX: O24.429 Gestational diabetes mellitus in childbirth, unspecified control (principal); Z37.0 Single live birth; K83.1 Obstruction of bile duct; O26.62 Liver and biliary tract disorders in childbirth; O70.20 Third degree perineal laceration during delivery, unspecified; O99.13 Other diseases of the blood and blood-forming organs and certain disorders involving the immune mechanism complicating the puerperium; O23.43 Unspecified infection of urinary tract in pregnancy, third trimester; N39.0 Urinary tract infection, site not specified; Z3A.38 38 weeks gestation of pregnancy; Z20.822 Contact with and (suspected) exposure to COVID-19; D72.829 Elevated white blood cell count, unspecified; D69.6 Thrombocytopenia, unspecified
CPT/HCPCS: 36415; 59200; 76815; 76816; 76819; 80053; 81001; 82962; 83036; 85025; 85027; 86762; 86850; 86900; 86901; 87116; 88307; G0378; J3490; J7517; J0595; J0696; J2590; U0003